=== PATIENT | female | born 1970 | race Caucasian/White ===

== ENCOUNTER → 2016-09-26 | Outpatient (CLI) | payer MEDICARE ==
[~2016-09-26] MED LIST: ADDERALL10 MG PO; AMARYL PO; BENTYL20 M1 PO; BUPROPION XL300 M1 PO; COREG3.125 MG PO; COZAAR25 MG PO; CYMBALTA PO; ESCITALOPRAM OX10 MG PO; GLUCOPHAGE500 MG PO; IRON325 ( 65 ) PO; LANTUS100 UNITS/ SUBQ; NOVOLOG100 U/M1 SUBQ; OMEPRAZOLE20 M1 PO; OXYCONTIN20 MG PO; PHENERGAN25 M1 PO; ROXICODONE5 MG PO; XANAX0.5 M1 PO; XANAX1 MG PO; ZESTRIL40 MG PO
--- NOTE | ~2016-09-26 | CT2 ---
[facility] A Service of [facility] RADIOLOGY TEXT RESULTS PATIENT: KEILA MARTINEZ LOCATION: [facility] : 74 UNIT #: [id number] AGE: [address]: Amado Castro MD SEX: F ORDER DR: [id number] [facility] [place] [facility]. [place], [place] [address] [id number] O MR#: [id number] Acc #: [id number] NAME: KEILA MARTINEZ : 1970 SEX: F STUDY DATE/TIME: 09/26/2016 16:09 UNIT: [facility] ROOM: STUDY DESCRIPTION: CT Abd and Pelv W Cont Attending Physician: Amado Castro M.D. Referring Physician: Amado Castro M.D. Ordering Physician: Amado Castro M.D. MEDICAL IMAGING REPORT This report is preliminary unless electronic signature is present EXAM CT abdomen and pelvis with contrast INDICATIONS Left upper quadrant abdominal pain for the past 3-4 months. Restaging Hodgkin's lymphoma. TECHNIQUE Contrast-enhanced CT of the abdomen and pelvis. 100 mL of Isovue-370. This CT exam was performed with one or more of the following radiation dose reduction techniques: automatic exposure control, adjustment of mA and/or kV according to patient size, and iterative reconstruction. COMPARISON 06/05/2013. FINDINGS ABDOMEN WITH CONTRAST: Included lung bases are clear. Liver measures 24.9 cm. Hepatic steatosis. No liver mass. Spleen measures 14.7 cm. Spleen previously measured 13.3 cm. There is no focal splenic lesion. Kidneys, adrenal glands, pancreas are unremarkable. Previous cholecystectomy. The bowel loops are non-dilated. Portohepatic node measures 1.6 cm, previously 1.1 cm. A portocaval node measures 1.3 cm in short axis dimension, previously 1.2 cm. PELVIS WITH CONTRAST: No pelvic mass or fluid. No pelvic adenopathy. No aggressive appearing bone lesion. [facility] A Service of [facility] RADIOLOGY TEXT RESULTS PATIENT: KEILA MARTINEZ [facility] [id number] : 74 UNIT #: [id number] AGE: [address]: Amado Castro MD SEX: F ORDER DR: IMPRESSION 1. No acute findings. 2. Hepatosplenomegaly. Splenomegaly slightly increased from the prior. Hepatic steatosis. 3. There are a few prominent periportal nodes that are minimally increased from the previous study. These may simply be related to the underlying liver changes. There is no pathologically enlarged adenopathy elsewhere in the abdomen or pelvis. Dictated by... Riley Joe M.D. THIS IS AN ELECTRONICALLY VERIFIED REPORT Riley Joe M.D. at 09/28/2016 7:10 AM EED/corry TD: 09/26/2016 21:55 JOB #: [id number] MEDICAL IMAGING REPORT COPY
[2016-09-27 09:34] LABS: POC - GFR >60.0 mL/min (>60)
== END | disposition home or self-care (01) ==
LOC: CCAT 14:44
PROVIDERS: Internal Medicine Hematology & Oncology
DX: C81.77 Other Hodgkin lymphoma, spleen (principal); R16.2 Hepatomegaly with splenomegaly, not elsewhere classified; K76.0 Fatty (change of) liver, not elsewhere classified
CPT/HCPCS: 74177; 82565; Q9967

== ENCOUNTER → 2016-10-11 | Outpatient (CLI) | payer MEDICARE ==
--- NOTE | ~2016-10-11 | XA51 ---
[facility] A Service of [facility] RADIOLOGY TEXT RESULTS PATIENT: KEILA MARTINEZ LOCATION: [facility] : 74 UNIT #: [id number] AGE: [address]: Amado Castro MD SEX: F ORDER DR: [id number] [facility]. [place], [place] [address] [id number] O MR#: [id number] Acc #: [id number] NAME: KEILA MARTINEZ : 1970 SEX: F STUDY DATE/TIME: 10/11/2016 9:52 UNIT: [facility] ROOM: STUDY DESCRIPTION: XA BX Bone Marrow Attending Physician: Amado Castro M.D. Ordering Physician: Amado Castro M.D. Primary Care Physician: Altagracia Flaherty MEDICAL IMAGING REPORT This report is preliminary unless electronic signature is present EXAM Fluoroscopically-guided bone marrow biopsy and aspiration, 10/11/2016 INDICATION 46-year-old female with lymphoma. Fluoro time 0.7 minutes. One fluoroscopic spot image was taken. Medications 5 mg of Versed IV, and 150 mcg of fentanyl IV. Conscious sedation time monitored by appropriately credentialed radiology nursing staff. Risks, benefits, and alternative of the procedure discussed with the patient and informed consent was obtained. In the procedure room a time-out was performed confirming correct patient and procedure. All elements of maximum sterile-barrier technique were utilized according to guidelines appropriate for the procedure. TECHNIQUE/FINDINGS The skin overlying the posterior right iliac crest was prepped and draped in the usual sterile fashion. 1% lidocaine was utilized to anesthetize the skin and underlying subcutaneous tissues. Next, under fluoroscopic guidance, an 11-gauge bone access needle was advanced into the marrow space. A bone marrow aspirate followed by core biopsy was obtained. Samples were sent to pathology. The needle was removed and a sterile dressing was applied. No immediate complications. IMPRESSION Technically successful fluoroscopically-guided bone marrow biopsy and aspiration. Dictated by... Riaz Christensen M.D. [facility] A Service of [facility] RADIOLOGY TEXT RESULTS PATIENT: KEILA MARTINEZ LOCATION: [facility] #: [id number] : 74 UNIT #: [id number] AGE: [address]: Amado Castro MD SEX: F ORDER DR: THIS IS AN ELECTRONICALLY VERIFIED REPORT Riaz Christensen M.D. at 10/15/2016 8:37 AM Anabella TD: 10/12/2016 02:35 JOB #: [id number] MEDICAL IMAGING REPORT COPY
[2016-10-11 07:59] LABS: HEMATOCRIT 36.9 % (35.0-45.0); HEMOGLOBIN 11.2 gm/dL (12.0-16.0); MEAN CELL VOLUME 74.5 FL (83-96); MEAN CORPUSCULAR HEMOGLOBIN 22.6 PG (28-34); MEAN CORPUSCULAR HGB CONC 30.4 g/dL (30-36); MEAN PLATELET VOLUME 8.7 FL (6.5-11.5); RED BLOOD COUNT 4.96 X10e (3.90-5.30); RED CELL DISTRIBUTION WIDTH 25.5 % (11.0-15.5)
[2016-10-11 08:11] LABS: PARTIAL THROMBOPLASTIN TIME 22.9 SECONDS (23.5-31.3)
== END | disposition home or self-care (01) ==
LOC: CIVR 07:16
PROVIDERS: Internal Medicine Hematology & Oncology
DX: C83.07 Small cell B-cell lymphoma, spleen (principal); C85.87 Other specified types of non-Hodgkin lymphoma, spleen; D50.0 Iron deficiency anemia secondary to blood loss (chronic); K25.9 Gastric ulcer, unspecified as acute or chronic, without hemorrhage or perforation; I10 Essential (primary) hypertension; E11.9 Type 2 diabetes mellitus without complications; E28.2 Polycystic ovarian syndrome; M19.90 Unspecified osteoarthritis, unspecified site; F17.210 Nicotine dependence, cigarettes, uncomplicated; Z88.1 Allergy status to other antibiotic agents; Z88.5 Allergy status to narcotic agent
CPT/HCPCS: 38221; G0364; 36415; 77002; 85027; 85610; 85730; 88182; 88184; 88185; 88305; 88311; 88313; 88323; 88341; 88342; 99152; 99153; J1642; J2250; J3010